=== PATIENT | female | born 2000 | race Caucasian/White ===

== ENCOUNTER 2022-09-15 14:48 | Outpatient (OUT) | payer BC, SELFPAY ==
--- NOTE | 2022-09-15 14:53 | XR_ITS ---
The [address] [address] Patient Name: SHAWNEE GARCIA MRN: [id number] date: 2000 Sex: F Assigned Patient Location: [facility] Current Patient Location: RAD Accession/Order Number: [id number] Exam Date: 09/15/2022 14:55 Report Date: 09/15/2022 16:01 At the request of: GUILLERMO ETIENNE Procedure: XR ankle RT min 3V PROCEDURE: XR ankle RT min 3V DATE: 09/15/2022 1:55 PM CDT COMPARISONS: 04/15/2022 CLINICAL INDICATION: RIGHT ANKLE PAIN FINDINGS: There is no evidence of fractures or other acute osseous abnormalities. As on previous images there are 2 partial horizontal pins of the distal tibia implying previous surgery. These are in stable position. The tibiotalar joint space appears mild to moderately narrowed. There is spurring about the tibiotalar joint space consistent with degenerative changes. The ankle mortise is not widened. 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 Postop changes. No other osseous abnormalities identified.. Electronically authenticated by: ROB VEGA Date: 09/15/2022 16:01
== END 2022-09-15 14:49 | disposition home or self-care (01) ==
LOC: RAD 14:48
PROVIDERS: Visit Provider Podiatrist Foot & Ankle Surgery
DX: M19.171 Post-traumatic osteoarthritis, right ankle and foot (principal)
CPT/HCPCS: 73610